=== PATIENT | male | born 1995 | race Caucasian/White ===

== ENCOUNTER 2019-05-25 08:31 | Outpatient (CLI) | payer OTHER, SELFPAY ==
--- NOTE | ~2019-05-25 | MR_ITS ---
EXAMINATION: MR shoulder LT wo con DATE: 05/25/2019 10:26 INDICATION: Left anterolateral shoulder pain. TECHNIQUE: Magnetic resonance imaging (MRI) of the left shoulder was performed without intravenous co ntrast. Sequences included axial PD-weighted FS FSE, coronal oblique PD-weighted FS FSE, coronal obli que T2-weighted FS FSE, sagittal PD-weighted FS FSE, and sagittal T1-weighted SE. COMPARISON: None. FINDINGS: Coracoacromial arch: The acromion undersurface is curved in morphology (type II). The coracoacromial ligament is normal. A cromioclavicular joint is normal. Rotator cuff: The supraspinatus, infraspinatus and teres minor tendons are normal. The subscapularis tendon is norm al. Normal rotator cuff muscle bulk and signal. Biceps tendon, glenoid labrum and glenohumeral cartilage: Long head of the biceps tendon is normal. Glenoid labrum is normal. Small chondral ulceration at the central aspect of the glenoid with partial thickness cartilage loss but without degenerative subartic ular changes. Remaining glenohumeral cartilage appears normal. Fluid: Physiologic amount of fluid in the glenohumeral joint and biceps tendon sheath. No loose osteochondra l bodies. No abnormal fluid signal at the subacromial/subdeltoid bursa to suggest bursitis. Bones: Small bone island at the posterior inferior glenoid. Normal marrow signal with no edema, fracture or abnormal marrow replacing process. IMPRESSION: 1. Moderate grade glenoid chondromalacia with small partial-thickness ulceration at the central aspec t of the glenoid. Reviewed, dictated and finalized at location A. P PICKER IMPRESSION: 1. Moderate grade glenoid chondromalacia with small partial-thickness ulceratio n at the central aspect of the glenoid.
== END 2019-05-25 08:32 | disposition home or self-care (01) ==
LOC: CHSIMG 08:37
PROVIDERS: PCP Internal Medicine; Visit Provider Internal Medicine
DX: M25.512 Pain in left shoulder (principal)
CPT/HCPCS: 73221

== ENCOUNTER 2020-12-21 09:40 | Outpatient (CLI) | payer SELFPAY ==
[2020-12-21 10:56] LABS: SARS-CoV-2 Ag Negative (Negative)
== END 2020-12-21 09:41 | disposition home or self-care (01) ==
LOC: CHSLAB 09:42
PROVIDERS: PCP Internal Medicine; Visit Provider Internal Medicine
DX: J06.9 Acute upper respiratory infection, unspecified (principal); Z20.822 Contact with and (suspected) exposure to COVID-19
CPT/HCPCS: 87081; 87426; 87880; C9803

== ENCOUNTER 2021-02-23 11:31 | Outpatient (CLI) | payer OTHER, SELFPAY ==
--- NOTE | ~2021-02-23 | XR_ITS ---
XR sinus min 3V DATE: 02/23/2021 12:01 INDICATION: Right facial pain, pressure TECHNIQUE: Nicole Glynn. Lateral and submental vertical views COMPARISON: None FINDINGS: The paranasal sinuses and mastoid air cells are normally developed and aerated. IMPRESSION: Normal examination Reviewed, dictated and finalized at location A. ANICAL MAINTENANCE ENGINEER IMPRESSION: Normal examination
== END 2021-02-23 11:32 | disposition home or self-care (01) ==
LOC: CHSIMG 11:34
PROVIDERS: PCP Internal Medicine; Visit Provider Nurse Practitioner Family
DX: J32.9 Chronic sinusitis, unspecified (principal)
CPT/HCPCS: 70220

== ENCOUNTER 2023-06-23 11:38 | Outpatient (CLI) | payer OTHER, SELFPAY ==
--- NOTE | ~2023-06-23 | XR_ITS ---
Left wrist Technique: PA, oblique, lateral, and ulnar deviation views were obtained. Clinical History: Pain Findings: No acute fracture or dislocation is seen. Osseous alignment is anatomic. Joint spaces are p reserved. Soft tissues are unremarkable. Impression: Unremarkable left wrist radiographs. Reviewed, dictated and finalized at location . Impression: Unremarkable left wrist radiographs.
== END 2023-06-23 11:39 | disposition home or self-care (01) ==
LOC: CHSIMG 11:43
PROVIDERS: PCP Internal Medicine; Visit Provider Internal Medicine
DX: M25.532 Pain in left wrist (principal)
CPT/HCPCS: 73110